=== PATIENT | male | born 1930 | race Caucasian/White ===

== ENCOUNTER 2017-04-25 17:00 | Emergency (ER) | payer MEDICARE ==
--- NOTE | 2017-04-25 17:47 | CT ---
CT OF HEAD NONCONTRAST: Clinical history: Trauma. FINDINGS: No evidence of intracranial hemorrhage, mass effect or midline shift. There is parenchymal volume los s with compensatory dilatation of the ventricular system. Mild chronic microvascular ischemic disease is present. Exam is compared to 02-03-17, without significant interval detrimental change identified. IMPRESSION: No acute intracranial abnormality. POS: [facility]
--- NOTE | 2017-04-25 17:53 | CT ---
CERVICAL SPINE CT NONCONTRAST: Indication: Fall with neck injury and pain. FINDINGS: There is diffuse osseous degenerative change as well as osseous demineralization. Multifocal areas of lucency are present. These could be on the basis of areas of osseous demineralization or possibly a myeloproliferative process, not further discerned on the basis of this exam. There is age indetermina te mild height loss of superior endplate at the T3 level. Correlate clinically. Motion artifact is pr esent which does limit evaluation. There are also areas of beam hardening artifact overlying portions of the proximal cervical spine producing osseous irregularity within this region, thus limiting asse ssment. There is partially imaged cardiac pacing device. IMPRESSION: 1. No definite acute fracture. 2. Multifocal osseous lucencies as above. Correlate clinically. 3. Prominent degenerative change. POS: [facility]
--- NOTE | 2017-04-25 18:03 | CT ---
FACIAL CT NONCONTRAST: Indication: Post-traumatic facial injury, fall. FINDINGS: There is irregularity of the nasal bones, age indeterminate. Recommend correlation with physical exam . [place] intraocular lens are absent. No retrobulbar hematoma. No displaced orbital wall fracture is seen. There is leftward nasal septal deviation with cystic nasal septic spur. Maxillary sinus grande a re intact. There is streak artifact from dental amalgam limiting assessment. No abnormal displacement of the temporomandibular joints. There is mild chronic appearing slight concavity of the bilateral z ygomatic arches without a discrete, acute fracture seen. IMPRESSION: Irregularity of the nasal bones, age indeterminate. Recommend correlation with clinical exam. POS: [facility]
[2017-04-25] MEDS ORDERED: Adacel (T-DAP) 0.5 ML VIAL ONE (18:28)
[2017-04-25] MEDS ORDERED: Lidocaine 1% w/Epinephrine 1:100K 20 ML VIAL ONE (18:54)
== END 2017-04-25 20:10 | disposition home or self-care (01) ==
LOC: ERS 17:00
DX: S01.112A Laceration without foreign body of left eyelid and periocular area, initial encounter (principal); S01.21XA Laceration without foreign body of nose, initial encounter; I48.91 Unspecified atrial fibrillation; E03.9 Hypothyroidism, unspecified; E78.5 Hyperlipidemia, unspecified; Z79.01 Long term (current) use of anticoagulants; Z79.899 Other long term (current) drug therapy; Z79.82 Long term (current) use of aspirin; Z86.718 Personal history of other venous thrombosis and embolism; W19.XXXA Unspecified fall, initial encounter
CPT/HCPCS: 12014; 70450; 70486; 72125; 90471; 90715; J2001

== ENCOUNTER 2017-07-01 14:14 | Emergency (ER) | payer MEDICARE ==
[2017-07-01 14:45] LABS: #Eosinphils 0.3 thou/uL (0.0-0.7); #Lymphocytes 0.8 thou/uL (1.20-3.40); #Monocytes 0.6 thou/uL (0.11-0.59); #Neutrophils 6.4 thou/uL (1.40-6.50); %Basophils 0.4 % (0.0-1.0); %Eosinophils 3.6 % (0.0-10.0); %Lymphocytes 10.2 % (21.0-51.0); %Monocytes 7.3 % (0.0-10.0); %Neutrophils 78.5 % (42.0-75.0); Hemoglobin 12.8 g/dL (14.0-18.0); Mean Corpuscular HGB CONC 34.1 g/dL (32.0-36.0); Mean Corpuscular Hemoglobin 32.6 pg (27.0-31.0); Mean Corpuscular Volume 95.6 fl (80.0-94.0); Mean Platelet Volume 7.2 fL (7.4-10.4); Platelet Count 183 thou/uL (130-400); RBC Distribution Width 13.5 % (11.5-14.5); Red Blood Cell (RBC) Count 3.93 mill/uL (4.70-6.10); White Blood Cell (WBC) Count 8.2 thou/uL (4.8-10.8)
[2017-07-01 15:01] LABS: ALT (SGPT) 13 U/L (8-55); AST (SGOT) 21 U/L (5-34); Albumin 3.8 g/dL (3.4-4.8); Alkaline Phosphatase 83 U/L (40-150); Anion Gap 15 mmol/L (10-20); BUN (Urea Nitrogen) 37 mg/dL (8.4-25.7); Bilirubin, Total 0.7 mg/dL (0.2-1.2); Calc. Creatinine Clearance 0 mL/min (70-130); Carbon Dioxide 19 mmol/L (23-31); Chloride 108 mmol/L (98-107); Estimated GFR-MDRD 34; Globulin 3.1 g/dL (2.4-3.5); Glucose 106 mg/dL (83-110); Protein, Total 6.9 g/dL (5.8-8.1); Sodium 138 mmol/L (136-145)
--- NOTE | 2017-07-01 15:03 | RAD ---
2 VIEWS LEFT HIP: Date: 07/01/17 INDICATION: Fall. COMPARISON: Prior study dated 02/03/17. FINDINGS: There has been interval placement of a left hip endoprosthesis. The prosthetic component projects in the expected position. There is diffuse osteopenia. There is heterotopic ossification surrounding the left hip joint. No definite displaced fracture is grossly evident. IMPRESSION: No acute osseous abnormality. POS: [facility]
--- NOTE | 2017-07-01 15:04 | RAD ---
AP VIEW PELVIS: Date: 07/01/17 INDICATION: History of fall with left-sided hip pain. FINDINGS: There is left hip endoprosthesis. There is heterotopic ossification surrounding the left hip joint. T here is mild to moderate degenerative arthrosis of the right hip joint. There are scattered phlebolit hs. There is diffuse osteopenia. No definite acute osseous abnormality is evident. IMPRESSION: No acute osseous abnormality. POS: [facility]
[2017-07-01 15:06] LABS: Troponin I 0.016 ng/mL (< 0.028)
--- NOTE | 2017-07-01 15:09 | RAD ---
AP VIEW OF CHEST: Date: 07/01/17 INDICATION: History of fall with chest pain. COMPARISON: Prior exam dated 04/17/13. FINDINGS: There is mild to moderate cardiomegaly. Pulmonary vasculature appears within normal limits. There is a dual lead pacemaker overlying the left chest wall. No definite pleural effusion or pneumothorax is evident. No acute osseous abnormality is evident. IMPRESSION: Cardiomegaly without evidence of cardiac decompensation. POS: [facility]
[2017-07-01] MEDS ORDERED: traMADol HCl 50 MG TAB ONE (15:56)
== END 2017-07-01 16:56 | disposition home or self-care (01) ==
LOC: ERS 14:14
DX: S70.02XA Contusion of left hip, initial encounter (principal); G20 Parkinson's disease; I48.91 Unspecified atrial fibrillation; E03.9 Hypothyroidism, unspecified; E78.5 Hyperlipidemia, unspecified; I10 Essential (primary) hypertension; Z79.82 Long term (current) use of aspirin; Z79.01 Long term (current) use of anticoagulants; Z85.828 Personal history of other malignant neoplasm of skin; Z79.899 Other long term (current) drug therapy; Z96.652 Presence of left artificial knee joint; W19.XXXA Unspecified fall, initial encounter
CPT/HCPCS: 71045; 72170; 80053; 82553; 83605; 84484; 85025; 93005

== ENCOUNTER 2019-03-28 10:08 | Observation (INO) | payer MEDICARE ==
[~2019-03-28 10:08] MED LIST: Iopamidol-370 76% 500 ML 1 ML ONE
[2019-03-28 10:51] LABS: #Basophils 0.1 thou/uL (0.0-0.2); #Lymphocytes 0.7 thou/uL (1.20-3.40); #Monocytes 0.8 thou/uL (0.11-0.59); %Basophils 0.4 % (0.0-1.0); %Eosinophils 0.2 % (0.0-10.0); %Lymphocytes 4.2 % (21.0-51.0); %Monocytes 4.9 % (0.0-10.0); %Neutrophils 90.3 % (42.0-75.0); Hemoglobin 12.7 g/dL (14.0-18.0); Mean Corpuscular HGB CONC 33.6 g/dL (32.0-36.0); Mean Corpuscular Hemoglobin 32.4 pg (27.0-31.0); Mean Corpuscular Volume 96.3 fL (78.0-98.0); Mean Platelet Volume 7.8 fL (7.4-10.4); Platelet Count 192 thou/uL (130-400); RBC Distribution Width 12.6 % (11.5-14.5); Red Blood Cell (RBC) Count 3.92 mill/uL (4.70-6.10); White Blood Cell (WBC) Count 15.5 thou/uL (4.8-10.8)
[2019-03-28 11:04] LABS: INR-International Normal Ratio 1.3; PTT 37.7 SEC (22.9-36.1); Prothrombin Time 15.7 SEC (12.0-14.7)
[2019-03-28 11:14] LABS: ALT (SGPT) 7 U/L (8-55); AST (SGOT) 13 U/L (5-34); Albumin 3.3 g/dL (3.4-4.8); Alkaline Phosphatase 70 U/L (40-110); Anion Gap 14 mmol/L (10-20); BUN (Urea Nitrogen) 30 mg/dL (8.4-25.7); Bilirubin, Total 0.5 mg/dL (0.2-1.2); Calc. Creatinine Clearance 0 mL/min (70-130); Calcium 8.9 mg/dL (7.8-10.44); Carbon Dioxide 22 mmol/L (23-31); Chloride 113 mmol/L (98-107); Estimated GFR-MDRD 57; Globulin 3.2 g/dL (2.4-3.5); Glucose 114 mg/dL (83-110); Potassium 3.6 mmol/L (3.5-5.1); Protein, Total 6.5 g/dL (5.8-8.1); Sodium 145 mmol/L (136-145)
--- NOTE | 2019-03-28 11:52 | CT ---
CT Abdomen Pelvis W Con: 03/28/2019 10:26 AM CLINICAL INFORMATION: Coffee-ground emesis and abdominal pain COMPARISON: None. TECHNIQUE: Multiple contiguous axial images were obtained and a CT of the abdomen and pelvis with IV contrast. C oronal and sagittal reformats were performed. FINDINGS: Lower Chest: Bibasilar atelectasis Abdomen: Liver: within normal limits. Bile Ducts: Normal caliber. Gallbladder: No calcified gallstones. Normal caliber wall. Pancreas: within normal limits. Spleen: A few scattered calcified granulomas. Adrenals: within normal limits. Kidneys: Bilateral renal hypodensities likely represent cysts. Pelvis: Reproductive Organs: No pelvic masses. Ureters: within normal limits. Bladder: 2.9 cm diverticulum emanating from the superior aspect of the urinary bladder. Peritoneum: No ascites or free air, no fluid collection. Bowel: Normal caliber. Scattered diverticula in the colon. Mesentery and Retroperitoneum: No enlarged mesenteric or retroperitoneal lymph nodes. Vessels: Atherosclerotic calcifications. Abdominal Wall: within normal limits. Bones: Degenerative changes in the spine. There are healed left pelvic fractures and the patient has a left hip prosthesis. IMPRESSION: 1. No evidence of acute intraabdominal or pelvic abnormality. 2. Diverticulosis 3. Urinary bladder diverticulum
[2019-03-28 12:13] LABS: CKMB 1.5 ng/mL (0-6.6)
--- NOTE | 2019-03-28 12:45 | RAD ---
EXAM: Single view of the chest HISTORY: Cough COMPARISON: 04/14/2018 FINDINGS: Single view of the chest shows an enlarged but stable cardiomediastinal silhouette. The pa cemaker is unchanged in position. There is no evidence of consolidation, mass, or pleural effusion. The bones are unremarkable. IMPRESSION: Cardiomegaly without evidence of acute cardiopulmonary disease
[2019-03-28 14:22] LABS: Troponin I 0.051 ng/mL (< 0.028)
[2019-03-28] MEDS ORDERED: Ondansetron ODT 4 MG TAB PO PRN (15:42)
[2019-03-28] MEDS ORDERED: Senokot S 8.6-50 MG TAB PO PRN (15:42)
[2019-03-28] MEDS ORDERED: Guaifenesin DM 100-10/5 ML UDCUP PO PRN (15:42)
[2019-03-28] MEDS ORDERED: Ondansetron PF 4 MG/2 ML Vial IVP PRN (15:42)
[2019-03-28] MEDS ORDERED: Acetaminophen 325 MG TAB PO PRN (15:42)
[2019-03-28] MEDS ORDERED: Acetaminophen 650 MG Suppository PR PRN (15:42)
[2019-03-28] MEDS ORDERED: cloNIDine 0.1 MG TAB PO PRN (15:43)
[2019-03-28] MEDS ORDERED: Losartan 25 MG TAB PO SCH (16:15)
[2019-03-28 17:01] LABS: Troponin I Less than 0.010 ng/mL (< 0.028)
--- NOTE | 2019-03-28 18:26 | HP ---
PRIMARY CARE PHYSICIAN: Magalis Raines MD. CHIEF COMPLAINT: Vomiting brown stuff. HISTORY OF PRESENT ILLNESS: This is an 88-year-old white male with a known history of Parkinson dementia has been progressive over the last year. He lives in a group home in [place] accompanied by his and his son. The patient has reportedly been having increasingly severe cough over the last 2 to 3 days. This was causing to choke some, but not causing any respiratory distress. Then, this morning he had an episode of vomiting before he ate anything or any breakfast episode of vomiting of brown stuff. This was initially reported as possible coffee-grounds emesis to the emergency room. However, on speaking with the nurse at the group home, it was actually just really dark brown. There was no coffee-ground color. There was no visible blood at all. The patient was then sent over to the emergency room. Other things he has had going on recently, he has had some blood in his urine. He had urinalysis done over 10 days ago. It shows small amount of blood, small amount of bacteria, no white blood cells. He did apparently grow back vancomycin-resistant Enterococcus though and he was started on nitrofurantoin 5 days ago. He has been taking this since then. In the emergency room, the patient had stable hemoglobin, hematocrit, it was actually higher than his last check, but he was noted to have new elevated white blood cell count of 15,000 and indeterminate troponin of 0.034, recheck was 0.051. He has had history of atrial fibrillation with a pacemaker placed and was being in a paced rhythm when he was in the emergency room; however, he started having multiple runs of ventricular tachycardia greater than 10 beats each time. In combination of these, ER physician wanted to observe him in the hospital overnight. REVIEW OF SYSTEMS: See HPI for all known positives. The patient is not able to provide review of systems secondary to his Parkinson dementia. PAST MEDICAL HISTORY: 1. Parkinson disease with dementia. 2. DVT with PE many years ago, was chronically on Coumadin for that and for his atrial fibrillation for many years, however, they decided to take it off in the last year. He has not been on it for over a month. 3. Chronic atrial fibrillation now with a pacemaker. 4. Hypothyroidism. 5. Hypercholesterolemia. 6. Hypertension. 7. Chronic obstructive pulmonary disease. 8. Gastroesophageal reflux disease. 9. Some type of valvular heart disease. 10. 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 PAST SURGICAL HISTORY: 1. Pacemaker. 2. Appendectomy. 3. Left knee surgery. 4. Tonsillectomy. SOCIAL HISTORY: The patient has no history of tobacco, alcohol, or illicit drug use. He lives at [facility]. He is . He is a do not attempt resuscitation. His , Kaylan Soni is his medical power of assistant attorney general is at the bedside. His son is a pharmacist is also at the bedside. FAMILY HISTORY: No significant family history. ALLERGIES: HYDROCODONE CAUSES SEVERE CONSTIPATION AND POSSIBLY CONFUSION. CURRENT MEDICATIONS: 1. Ipratropium bromide nasal spray 1 to 2 sprays in each nostril twice a day. 2. Nisoldipine 8.5 mg twice a day. 3. Amiodarone 100 mg daily. 4. Clonidine 0.1 mg as needed for blood pressure over 180. 5. FiberCon 625 mg daily. 6. Furosemide 20 mg daily. 7. Ferrous sulfate 325 mg daily. 8. Levocetirizine 5 mg daily as needed for allergic rhinitis. 9. Levothyroxine 50 mcg daily. 10. Losartan 100 mg daily. 11. Macrobid 100 mg twice a day starting 03/23/2019, course ends 04/01/2019. 12. Metoprolol tartrate 50 mg twice a day. 13. Potassium chloride 10 mEq p.o. daily. 14. Senna 8.6 mg 2 times a day. PHYSICAL EXAMINATION: VITAL SIGNS: Blood pressure 153/83, pulse 61, respirations 17, temperature 98.4, and O2 saturation 100% on 2 L. GENERAL: This is a well-developed, elderly, white man, lying calmly in the bed with his eyes closed. He will respond with pleasantries, but cannot give any history. He will not open his eyes. The family says he has done that more and more over the last year as a progression of the Parkinson's. EYES: Right eye, I was able to get a look at it has a round reactive pupil. The left eye, he would not let me open up enough to look at it. Oropharynx clear without lesions, erythema, or exudate. NECK: Supple. No lymphadenopathy. No thyroid nodules or enlargement. No JVD. HEART: Irregularly irregular rhythm at a controlled rate. No murmurs, rubs, or gallops. LUNGS: Clear to auscultation bilaterally. No wheezes, crackles, or rhonchi. ABDOMEN: Soft, nontender to palpation. Normoactive bowel sounds. No hepatosplenomegaly or masses. EXTREMITIES: No clubbing or cyanosis. He has some trace edema in the anterior tibial area. SKIN: No rashes or other lesions noted. NEUROLOGIC: The patient does move all of his extremities. He seems to have a little bit of a right facial droop. The family thinks this is old. Otherwise, not able to further ascertain his neurologic exam due to his mental status. LABORATORY DATA: CBC with a white blood cell count of 15,000, previously it has always been normal most recently a year ago and in our computer system and in the group home chart, it was normal within the last month. Hemoglobin 12.7, hematocrit 37.8. These are actually higher than they were previously at the group home and platelet count 192. Coagulation profile with an INR of 1.3. Complete metabolic panel is notable for chloride of 113, carbon dioxide of 22, BUN of 30, creatinine of 1.2, glucose of 114, and albumin of 3.3. The rest is normal. Initial troponin was 0.034 went up to 0.051 and now we have a third set it is less than 0.010. CK-MB was negative. 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 ASSESSMENT: 1. Vomiting of dark material. This does not appear to be blood by rechecking with the group home history. His blood count remained stable. We will go ahead and recheck in the morning and make sure he is not having any evidence of bleeding. I suspect that his recent cough has caused him to get nauseated, made him vomit. 2. Chest congestion and cough. His chest x-ray does not show any evidence of pneumonia on my read or the radiologist's read. However, he does have an increased white blood cell count, most likely has a bronchitis; however, he could have an early lower respiratory tract infection. I will go ahead and start him on doxycycline 100 mg twice a day for a 10-day course. 3. History of urinary tract infection, appears to be VRE, currently on nitrofurantoin. We will complete the 10-day course of antibiotics. No evidence of acute infection at this point. I will go ahead and draw blood and urine cultures before we start antibiotics. 4. Indeterminate troponins. This has resolved with third set, possibly related to strain from the ventricular tachycardia episodes. 5. Self-limited ventricular tachycardia. This is just few runs here in the ER per the nursing history and in the group home, he actually was having some intermittent tachycardia episodes possibly with that as well. We will watch him on the monitor overnight. He has not had any more since the ER doctor called me. He has been just regularly paced rhythm. We will observe him overnight on telemetry. If he has further runs of this, we can ask Cardiology to take a look at him. However, given his decline in mental status as his family's desire for do not attempt resuscitation, I think any more aggressive interventions will not likely be warranted. 6. Gastrointestinal prophylaxis. We will put the patient on Pepcid twice a day. 7. Deep venous thrombosis prophylaxis. We will hold on any anticoagulants right now given his recent bleeding in his urine and the question of vomiting of blood. We will put on SCDs while he is in bed. 8. Code status. The patient is do not attempt resuscitation. His medical power of assistant attorney general is his , Kaylan Soni. Job ID: [id number]
[2019-03-28] MEDS ORDERED: Metoprolol Tartrate 50 MG TAB ONE (20:12)
[2019-03-28] MEDS: Metoprolol Tartrate 50 MG TAB PO SCH (20:15)
[2019-03-28] MEDS ORDERED: Nisoldipine 8.5 MG TAB PO SCH (21:00)
[2019-03-28] MEDS: Famotidine 20 MG TAB PO SCH (22:05)
[2019-03-28] MEDS: Amlodipine 5 MG TAB PO SCH (22:05)
[2019-03-28] MEDS: Nitrofurantoin Monohyd/M-Cryst 100 MG CAP PO SCH (22:05)
[2019-03-28] MEDS: Doxycycline 100 MG CAP PO SCH (22:05)
[2019-03-28 22:52] VITALS: BMI 27.6
[2019-03-29 05:04] LABS: #Lymphocytes 0.9 thou/uL (1.20-3.40); #Monocytes 0.6 thou/uL (0.11-0.59); #Neutrophils 9.2 thou/uL (1.40-6.50); %Basophils 0.4 % (0.0-1.0); %Eosinophils 0.4 % (0.0-10.0); %Lymphocytes 8.5 % (21.0-51.0); %Monocytes 5.8 % (0.0-10.0); %Neutrophils 84.9 % (42.0-75.0); Hemoglobin 11.1 g/dL (14.0-18.0); Mean Corpuscular HGB CONC 32.7 g/dL (32.0-36.0); Mean Corpuscular Hemoglobin 31.3 pg (27.0-31.0); Mean Corpuscular Volume 95.7 fL (78.0-98.0); Mean Platelet Volume 8.7 fL (7.4-10.4); Platelet Count 182 thou/uL (130-400); RBC Distribution Width 12.5 % (11.5-14.5); Red Blood Cell (RBC) Count 3.53 mill/uL (4.70-6.10); White Blood Cell (WBC) Count 10.8 thou/uL (4.8-10.8)
[2019-03-29 05:29] LABS: Anion Gap 11 mmol/L (10-20); BUN (Urea Nitrogen) 33 mg/dL (8.4-25.7); Calc. Creatinine Clearance 52 mL/min (70-130); Calcium 8.7 mg/dL (7.8-10.44); Carbon Dioxide 24 mmol/L (23-31); Chloride 112 mmol/L (98-107); Estimated GFR-MDRD 57; Glucose 91 mg/dL (83-110); Potassium 3.4 mmol/L (3.5-5.1); Sodium 144 mmol/L (136-145)
[2019-03-29] MEDS: Levothyroxine Sodium 50 MCG TAB PO SCH (05:55)
[2019-03-29 06:24] LABS: Bacteria/HPF 1+ HPF (None Seen); Bilirubin Negative (Negative); Blood, Urine Trace (Negative); Clarity Clear (Clear); Glucose, Urine (Dipstick) Normal (Negative); Leukocyte Negative Leu/uL (Negative); Nitrite Negative (Negative); Protein, Urine (Dipstick) 100 mg/dL (Neg-Trace); RBC/HPF 0-3 HPF (0-3); Squamous Epithelial 0-3 HPF (0-3); Urobilinogen Normal mg/dL (Less than 2)
--- NOTE | 2019-03-29 08:18 | PDOC.HOSPP ---
- Subjective Encounter Date: 03/29/19 Encounter Time: 10:50 Subjective: Patient did well overnight. Had 6 beats of Vtach on the monitor. Still with cough. No clinical changes. No fever. - Objective Vital Signs & Weight: Vital Signs (12 hours) Temp Pulse Resp BP BP Pulse Ox 03/29/19 08:03 98.0 F 60 16 179/84 H 16 L 03/29/19 04:23 97.8 F 60 20 176/91 H 98 03/28/19 22:47 60 20 162/84 H 03/28/19 22:05 162/84 H Weight Weight 192 lb 3.889 oz I&O: 03/28/19 03/29/19 03/30/19 06:59 06:59 06:59 Intake Total 100 Output Total 150 Balance -50 Result Diagrams: 03/29/19 04:25 03/29/19 04:25 Additional Labs: Accuchecks 03/29/19 07:35 POC Glucose 93 Hospitalist ROS - Medication Medications: Active Medications Generic Name Dose Route Start Last Admin Trade Name Elena PRN Reason Stop Dose Admin Amlodipine Besylate 2.5 mg 03/28/19 21:00 03/28/19 22:05 Norvasc PO 2.5 mg BID ROSARIO Administration Doxycycline Hyclate 100 mg 03/28/19 21:00 03/28/19 22:05 Vibramycin PO 100 mg BID ROSARIO Administration Famotidine 20 mg 03/28/19 21:00 03/28/19 22:05 Pepcid PO 20 mg BID ROSARIO Administration Levothyroxine Sodium 50 mcg 03/29/19 06:00 03/29/19 05:55 Synthroid PO 50 mcg 0600 ROSARIO Administration Metoprolol Tartrate 50 mg 03/28/19 21:00 03/28/19 20:15 Lopressor PO 50 mg BID ROSARIO Administration Nitrofurantoin Macrocrystals 100 mg 03/28/19 21:00 03/28/19 22:05 Macrobid PO 04/01/19 23:59 100 mg BID ROSARIO Administration Hosp A/P (1) Acute bronchitis Code(s): J20.9 - ACUTE BRONCHITIS, UNSPECIFIED Status: Acute (2) Vomiting Code(s): R11.10 - VOMITING, UNSPECIFIED Status: Resolved (3) Bacteriuria due to vancomycin resistant Enterococcus Code(s): R82.71 - BACTERIURIA; Z16.21 - RESISTANCE TO VANCOMYCIN Status: Acute (4) Ventricular tachycardia Code(s): I47.2 - VENTRICULAR TACHYCARDIA Status: Resolved (5) Parkinson's disease dementia Code(s): G20 - PARKINSON'S DISEASE; F02.80 - DEMENTIA IN OTH DISEASES CLASSD ELSWHR W/O BEHAVRL DISTURB Status: Chronic - Plan continue antibiotics Continuing nitrofurantoin from outpatient If no further V-tach episodes overnight can go back to the senior living on doxycycline for bronchitis vs early pneumonia Leukocytosis resolved and H/H stable at baseline, no evidence GI or respiratory tract bleed Does have 1/2 gram +/veriable rods in blood. Likely contaminent given lack of fever or leukocytosis. Awaiting cardiology recs and then possibly back to senior living later today.
[2019-03-29] MEDS: Amiodarone 200 MG TAB PO SCH (08:26)
[2019-03-29] MEDS: Doxycycline 100 MG CAP PO SCH ×2 (08:26→21:13)
[2019-03-29] MEDS: Amlodipine 5 MG TAB PO SCH ×2 (08:26→21:13)
[2019-03-29] MEDS: Furosemide 20 MG TAB PO SCH (08:26)
[2019-03-29] MEDS: Losartan 25 MG TAB PO SCH (08:26)
[2019-03-29] MEDS: Nitrofurantoin Monohyd/M-Cryst 100 MG CAP PO SCH ×2 (08:27→21:13)
[2019-03-29] MEDS: Metoprolol Tartrate 50 MG TAB PO SCH ×2 (08:27→21:13)
[2019-03-29] MEDS: Famotidine 20 MG TAB PO SCH ×2 (11:05→21:13)
[2019-03-29] MEDS ORDERED: Labetalol HCl 100 MG/20 ML VIAL SLOW IVP PRN (18:09)
[2019-03-30] MEDS: Levothyroxine Sodium 50 MCG TAB PO SCH (06:04)
[2019-03-30 08:09] LABS: #Eosinphils 0.1 thou/uL (0.0-0.7); #Lymphocytes 1.1 thou/uL (1.20-3.40); #Monocytes 0.7 thou/uL (0.11-0.59); #Neutrophils 6.3 thou/uL (1.40-6.50); %Basophils 0.1 % (0.0-1.0); %Eosinophils 1.2 % (0.0-10.0); %Lymphocytes 13.2 % (21.0-51.0); %Monocytes 8.4 % (0.0-10.0); %Neutrophils 77.1 % (42.0-75.0); Hemoglobin 11.2 g/dL (14.0-18.0); Mean Corpuscular HGB CONC 33.7 g/dL (32.0-36.0); Mean Corpuscular Hemoglobin 32.6 pg (27.0-31.0); Mean Corpuscular Volume 96.5 fL (78.0-98.0); Mean Platelet Volume 8.2 fL (7.4-10.4); Platelet Count 176 thou/uL (130-400); RBC Distribution Width 12.5 % (11.5-14.5); Red Blood Cell (RBC) Count 3.44 mill/uL (4.70-6.10); White Blood Cell (WBC) Count 8.1 thou/uL (4.8-10.8)
[2019-03-30 08:18] LABS: Anion Gap 13 mmol/L (10-20); BUN (Urea Nitrogen) 27 mg/dL (8.4-25.7); Calc. Creatinine Clearance 51 mL/min (70-130); Calcium 8.5 mg/dL (7.8-10.44); Carbon Dioxide 23 mmol/L (23-31); Chloride 111 mmol/L (98-107); Estimated GFR-MDRD 55; Glucose 81 mg/dL (83-110); Magnesium 2.2 mg/dL (1.6-2.6); Potassium 3.3 mmol/L (3.5-5.1); Sodium 144 mmol/L (136-145)
[2019-03-30] MEDS: Doxycycline 100 MG CAP PO SCH ×2 (09:11→20:17)
[2019-03-30] MEDS: Amlodipine 5 MG TAB PO SCH (09:11)
[2019-03-30] MEDS: Amiodarone 200 MG TAB PO SCH (09:11)
[2019-03-30] MEDS: Metoprolol Tartrate 50 MG TAB PO SCH ×2 (09:12→20:19)
[2019-03-30] MEDS: Losartan 25 MG TAB PO SCH (09:12)
[2019-03-30] MEDS: Furosemide 20 MG TAB PO SCH (09:12)
[2019-03-30] MEDS: Famotidine 20 MG TAB PO SCH ×2 (09:12→20:18)
[2019-03-30] MEDS: Nitrofurantoin Monohyd/M-Cryst 100 MG CAP PO SCH ×2 (09:12→20:19)
--- NOTE | 2019-03-30 09:39 | CON ---
DATE OF CONSULTATION: 03/29/2019 PRIMARY INSTRUMENT REPAIR SPECIALIST: Dr. Rex Coto. REASON FOR CONSULTATION: Nonsustained ventricular tachycardia. HISTORY OF PRESENT ILLNESS: Mr. Soni is an 89-year-old white gentleman, who comes to the hospital for vomiting. He vomited what appeared to be brown coffee-ground emesis. He has been having worsening cough in the last 3-4 days, thought to be related to some sort of bronchitis. He had an elevated white cell count on admission, so he was admitted, thought this was a bronchitis, unclear whether it was a GI bleed. However, his hemoglobin has remained stable and it appears that this has been ruled out already. Cardiology is being consulted during his cardiac monitor technician, he is being atrially paced, ventricularly sensed with a right bundle branch block morphology and he had a brief run of seven beats of nonsustained ventricular tachycardia. He was given about 120 beats per minute at that time. He has no other issues at this time. He is verbal and conversant; however, family wants to be DNR and is conservative as possible. PAST MEDICAL HISTORY: 1. Parkinson disease with dementia. 2. History of DVT in the past. He has been chronically on Coumadin for this. 3. History of atrial fibrillation, appears to be paroxysmal. 4. Hypothyroidism. 5. Hyperlipidemia. 6. Hypertension. 7. COPD. 8. GERD. 9. Valvular heart disease. 10. 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 PAST SURGICAL HISTORY: 1. Pacemaker placement. 2. Appendectomy. 3. Left knee surgery. 4. Tonsillectomy. SOCIAL HISTORY: No alcohol, tobacco, or drugs. Lives in the [facility]. is in the room with him. FAMILY HISTORY: Noncontributory. ALLERGIES: HYDROCODONE CAUSES SEVERE CONSTIPATION AND CONFUSION. OUTPATIENT MEDICATIONS: Include; 1. Ipratropium bromide sprays. 2. Nisoldipine 8.5 mg twice a day. 3. Amiodarone 100 mg a day. 4. Clonidine 0.1 mg p.r.n. for hypertension. 5. FiberCon. 6. Furosemide 20 mg a day. 7. Ferrous sulfate 325 a day. 8. Levocetirizine 5 mg p.r.n. for allergic allergies. 9. Levothyroxine 50 mcg a day. 10. Losartan 100 mg a day. 11. Macrobid. 12. Metoprolol tartrate 50 mg twice a day. 13. Potassium chloride 10 mEq day. 14. Senna S twice a day. REVIEW OF SYSTEMS: A 12-point review of systems was done and was all negative unless stated in the history of history of present illness. PHYSICAL EXAMINATION: VITAL SIGNS: Temperature 98.3, pulse 60, respiratory rate 16, sat 95% on 2 L nasal cannula, blood pressure 144/86. GENERAL: Awake, alert. He is oriented to person, but difficulty with time and place, in no distress. He is a retired psychologist. HEENT: Normocephalic atraumatic. NECK: Supple. LUNGS: Clear. CARDIOVASCULAR: Regular heart rate in the 60s. ABDOMEN: Soft, positive bowel sounds. EXTREMITIES: 1+ edema. SKIN: Warm and dry. LABORATORY DATA: Laboratory work was reviewed. White count from 15 down to 10, hemoglobin from 12 down to 11, hematocrit of 37, platelet count of a 182. Coags, INR are 1.3. Chemistries were reviewed. Potassium little lower this morning at 3.4. Troponin was 0.3, 0.05 and then undetectable. There are normal CK-MB albumin of 3.3. UA was with 4-6 white cells, and 1+ bacteria. ASSESSMENT: 1. Nonsustained ventricular tachycardia. 2. Hypokalemia. 3. History of atrial fibrillation. PLAN: 1. We will have his pacemaker/AICD interrogated. He is already on a beta marleny and amiodarone, so we will probably just continue this for now. This seems to be a dual chamber pacemaker only after reviewing the chest x-ray. 2. Family wants to be as conservative as possible. They are not interested in any heart catheterizations or any invasive interventions. They only want to do medications. Currently, on beta marleny and amiodarone. He should be okay with continuing these medications. This was only nonsustained. Not interested in ischemic workup given his level of dementia. 3. Thank you for letting us to participate in the care of your patient. We will plan on interrogating device and he may be discharged home at any point after interrogation of the device on current regimen. 4. Follow up with Dr. Coto in 1 to 2 months. Job ID: [id number]
[2019-03-30] MEDS ORDERED: Potassium Chloride 20 MEQ TAB PO SCH (11:30)
--- NOTE | 2019-03-30 11:45 | PDOC.HOSPP ---
- Subjective Encounter Date: 03/30/19 (f/u cough) Encounter Time: 11:43 Subjective: History obtained from the patient's daughter - she reports eyes open/ate today. Pt is not on oxygen at facility. significantly elevated bp's overnight that required 3 meds - Objective Vital Signs & Weight: Vital Signs (12 hours) Temp Pulse Resp BP BP Pulse Ox 03/30/19 07:25 97.5 F L 64 16 185/94 H 94 L 03/30/19 06:05 60 169/82 H 03/30/19 04:27 61 191/94 H 03/30/19 03:53 98.2 F 60 14 191/94 H 97 03/30/19 00:39 195/96 H Weight Weight 192 lb 3.889 oz I&O: 03/29/19 03/30/19 03/31/19 06:59 06:59 06:59 Intake Total 100 960 Output Total 150 Balance -50 960 Result Diagrams: 03/30/19 07:20 03/30/19 07:20 EKG Reviewed by me: Yes (tele - paced 60's, no arrhythmias in past 24 hours) Hospitalist ROS - Medication Medications: Active Medications Generic Name Dose Route Start Last Admin Trade Name Freq PRN Reason Stop Dose Admin Amiodarone HCl 100 mg 03/29/19 09:00 03/30/19 09:11 Cordarone PO 100 mg DAILY ROSARIO Administration Amlodipine Besylate 2.5 mg 03/28/19 21:00 03/30/19 09:11 Norvasc PO 2.5 mg BID ROSARIO Administration Clonidine 0.1 mg 03/28/19 15:43 03/30/19 00:39 Catapres PO 0.1 mg Q4H PRN Administration SBP Greater Than 180 Doxycycline Hyclate 100 mg 03/28/19 21:00 03/30/19 09:11 Vibramycin PO 100 mg BID ROSARIO Administration Famotidine 20 mg 03/28/19 21:00 03/30/19 09:12 Pepcid PO 20 mg BID ROSARIO Administration Furosemide 20 mg 03/29/19 09:00 03/30/19 09:12 Lasix PO 20 mg DAILY ROSARIO Administration Labetalol HCl 10 mg 03/29/19 18:09 03/30/19 04:27 Normodyne SLOW IVP 10 mg Q6H PRN Administration SBP Greater Than 180 Levothyroxine Sodium 50 mcg 03/29/19 06:00 03/30/19 06:04 Synthroid PO 50 mcg 0600 ROSARIO Administration Losartan Potassium 100 mg 03/29/19 09:00 03/30/19 09:12 Cozaar PO 100 mg DAILY ROSARIO Administration Metoprolol Tartrate 50 mg 03/28/19 21:00 03/30/19 09:12 Lopressor PO 50 mg BID ROSARIO Administration Nitrofurantoin Macrocrystals 100 mg 03/28/19 21:00 03/30/19 09:12 Macrobid PO 04/01/19 23:59 100 mg BID ROSARIO Administration Potassium Chloride 10 meq 03/29/19 08:00 03/30/19 09:11 Klor-Con PO 10 meq QAM-WM ROSARIO Administration - Exam General Appearance: NAD Heart: RRR, no murmur Respiratory: CTAB, no wheezes, no rales, no ronchi Gastrointestinal: soft, non-tender, non-distended, normal bowel sounds Musculoskeletal - other findings: cogwheel rigidty of UE Hosp A/P (1) Acute bronchitis Code(s): J20.9 - ACUTE BRONCHITIS, UNSPECIFIED Status: Acute (2) Parkinson's disease dementia Code(s): G20 - PARKINSON'S DISEASE; F02.80 - DEMENTIA IN OTH DISEASES CLASSD ELSWHR W/O BEHAVRL DISTURB Status: Chronic - Plan appreciate cardiology consult - continue current meds Replace potassium bp's uncontrolled - change amlodipine to 10 mg daily, with extra 5 mg now, schedule clonidine 0.1mg bid with first dose now monitor cough Only 1 blood cx positive - c/w contaminant dvt prophy - scd's gi prophy - not indicated code status DNAR reviewed antibiotics and plan of care with patient's daughter, plan for monitoring another 24 hours for bp. No questions or further needs at end of eval pt remains at high risk in current condition
[2019-03-30] MEDS ORDERED: Amlodipine 5 MG TAB PO SCH (12:00)
[2019-03-30] MEDS ORDERED: cloNIDine 0.1 MG TAB PO SCH (12:15)
--- NOTE | 2019-03-30 14:53 | DIS ---
DATE OF ADMISSION: 03/28/2019 DATE OF DISCHARGE: 03/30/2019 PRIMARY CARE PHYSICIAN: Dr. Raines. REASON FOR ADMISSION: Vomiting and runs of tachycardia. DIAGNOSES AT DISCHARGE: 1. Acute bronchitis. 2. Vomiting, resolved. 3. Chronic atrial fibrillation with pacemaker and intermittent runs of self-limited ventricular tachycardia. 4. Parkinson disease with advanced dementia. 5. Hypothyroidism. 6. Hypercholesterolemia. 7. Hypertension. 8. Chronic obstructive pulmonary disease without exacerbation. 9. Gastroesophageal reflux disease. PROCEDURES: CT of abdomen and pelvis showing no evidence for acute intracranial or pelvic abnormality. There was some diverticulosis and urinary bladder diverticulum. No evidence on my review for prostate abnormalities. CONSULTATION: Cardiology, Dr. Alberto. SUMMARY OF HOSPITAL COURSE: This is an 88-year-old white male with a known history of Parkinson's dementia had been progressive especially over the last year, lives in a [facility] in [place]. He stays mostly in bed, keeps his eyes closed, most of the time now does not talk as much as he used to and only has recollection of things from a long time ago. He developed some cough over the last 2 to 3 weeks and is significantly severe over the last 2 to 3 days. No fevers per [facility] reports, but he did have an episode of vomiting of brownish material. This was initially reported as possible coffee-grounds emesis to the ER when the patient was transferred. Nurse had also noticed some runs of tachycardia that were self limited. The patient was brought into the emergency room. He was found to have a few self-limited runs of ventricular tachycardia on the monitor without any vital sign abnormalities or symptoms. He did have intermittent cough, but no respiratory distress. Clear chest x-ray and clear lung exam. The patient was on nitrofurantoin for vancomycin-resistant Enterococcus, otherwise had not been on any specific treatments. He was noted to have a white blood cell count of 15,000 on admission. He did have an indeterminate troponin of 0.034 up to 0.051. The patient had normal vital signs in the emergency room and appeared to be in distress due to the indeterminate troponins and the ventricular tachycardia runs, the patient was observed overnight. He had one single run of 6 beats of ventricular tachycardia overnight. Otherwise, he was in paced rhythm, had no symptoms. His leukocytosis resolved the next day. He was put on doxycycline for bronchitis. He had no fevers. The patient did have one of his two blood cultures started growing back in an indeterminate or gram variable or gram positive jony consistent with a contaminant, though the final results of that are not back yet. He was in his normal state of health. The next day, Dr. Alberto did come to see him about ventricular tachycardia runs. He did not recommend any medication adjustments and the patient is being discharged back to [facility]. Of note, I was just informed by Case Management that the [facility] can take this late in the afternoon, so he will probably end up being sent him back tomorrow morning. Job ID: [id number]
--- NOTE | 2019-03-30 15:40 | PDOC.CPN ---
- Subjective Date: 03/30/19 Time: 15:39 Interval history: No new issue. - Review of Systems General: denies: fever/chills, weight/appetite/sleep changes, night sweats, fatigue Respiratory: denies: cough, congestion, shortness of breath, exercise intolerance Cardiovascular: denies: chest pain, palpitation, edema, paroxysmal nocturnal dyspnea, orthopnea Gastrointestinal: denies: nausea, vomiting, diarrhea, constipation, abd pain, GI bleeding Musculoskeletal: denies: pain, tenderness, stiffness, swelling, arthritis/ arthralgias Neurological: denies: numbness, syncope, seizure, weakness - Objective Allergies/Adverse Reactions: Allergies Allergy/AdvReac Type Severity Reaction Status Date / Time No Known Drug Allergies Allergy Verified 03/28/19 23:35 Visit Medications: Current Medications Acetaminophen (Tylenol) 650 mg PO Q4H PRN PRN Reason: Headache/Fever/Mild Pain (1-3) Acetaminophen (Tylenol) 650 mg CA Q4H PRN PRN Reason: Headache/Fever/Mild Pain (1-3) Amiodarone HCl (Cordarone) 100 mg PO DAILY [facility] Last Admin: 03/30/19 09:11 Dose: 100 mg Amlodipine Besylate (Norvasc) 10 mg PO DAILY [facility] Clonidine (Catapres) 0.1 mg PO Q4H PRN PRN Reason: SBP Greater Than 180 Last Admin: 03/30/19 00:39 Dose: 0.1 mg Clonidine (Catapres) 0.1 mg PO BID [facility] Doxycycline Hyclate (Vibramycin) 100 mg PO BID [facility] Last Admin: 03/30/19 09:11 Dose: 100 mg Famotidine (Pepcid) 20 mg PO BID [facility] Last Admin: 03/30/19 09:12 Dose: 20 mg Furosemide (Lasix) 20 mg PO DAILY [facility] Last Admin: 03/30/19 09:12 Dose: 20 mg Guaifenesin/Dextromethorphan (Robitussin Dm) 15 ml PO Q4H PRN PRN Reason: Cough Labetalol HCl (Normodyne) 10 mg SLOW IVP Q6H PRN PRN Reason: SBP Greater Than 180 Last Admin: 03/30/19 04:27 Dose: 10 mg Levothyroxine Sodium (Synthroid) 50 mcg PO 0600 [facility] Last Admin: 03/30/19 06:04 Dose: 50 mcg Losartan Potassium (Cozaar) 100 mg PO DAILY [facility] Last Admin: 03/30/19 09:12 Dose: 100 mg Metoprolol Tartrate (Lopressor) 50 mg PO BID [facility] Last Admin: 03/30/19 09:12 Dose: 50 mg Nitrofurantoin Macrocrystals (Macrobid) 100 mg PO BID [facility] Stop: 04/01/19 23:59 Last Admin: 03/30/19 09:12 Dose: 100 mg Ondansetron HCl (Zofran Odt) 4 mg PO Q6H PRN PRN Reason: Nausea/Vomiting Ondansetron HCl (Zofran) 4 mg IVP Q6H PRN PRN Reason: Nausea/Vomiting Potassium Chloride (Klor-Con) 10 meq PO QAM-WM [facility] Last Admin: 03/30/19 09:11 Dose: 10 meq Senna/Docusate Sodium (Senokot S) 2 tab PO BID PRN PRN Reason: Constipation Vital Signs & Weight: Vital Signs Temp Pulse Resp BP BP Pulse Ox 03/30/19 15:17 98.4 F 65 20 172/93 H 93 L 03/30/19 11:44 98.6 F 63 18 176/87 H 96 03/30/19 07:25 97.5 F L 64 16 185/94 H 94 L 03/30/19 06:05 60 169/82 H 03/30/19 04:27 61 191/94 H 03/30/19 03:53 98.2 F 60 14 191/94 H 97 Weight 192 lb 3.889 oz - Physical Exam General: no apparent distress HEENT: mucus membranes moist Neck: supple neck Cardiac: regular rate and rhythm Lungs: clear to auscultation Neuro: grossly intact Abdomen: active bowel sounds Extremities: 1+ LE edema Skin: clear Musculoskeletal: no pain - Labs Result Diagrams: 03/30/19 07:20 03/30/19 07:20 Troponin/CKMB CK-MB (CK-2) 1.5 ng/mL (0-6.6) 03/28/19 10:45 Troponin I Less than 0.010 ng/mL (< 0.028) 03/28/19 16:28 - Telemetry Sinus rhythms and dysrhythmias: other (A paced.) - Assessment/Plan Assessment/Plan: 1. Wide complex rhythm, not an arrhythmia but pacer mediated. 2. Paroxysmal afib, In sinus for last 7 months. 3. Uncontrolled HTN PLAN: - Agree with changes in BP meds. - Continue amiodarone and warfarin for stroke prophylaxis. - Will sign off, please call with any questions.
[2019-03-30] MEDS: cloNIDine 0.1 MG TAB PO SCH (20:16)
[2019-03-31 03:55] VITALS: TEMP 98.3
[2019-03-31] MEDS: Levothyroxine Sodium 50 MCG TAB PO SCH (05:13)
[2019-03-31] MEDS ORDERED: Amlodipine 5 MG TAB PO SCH (09:00)
[2019-03-31] MEDS: Amiodarone 200 MG TAB PO SCH (09:06)
[2019-03-31] MEDS: cloNIDine 0.1 MG TAB PO SCH (09:06)
[2019-03-31] MEDS: Famotidine 20 MG TAB PO SCH (09:07)
[2019-03-31] MEDS: Nitrofurantoin Monohyd/M-Cryst 100 MG CAP PO SCH (09:07)
[2019-03-31] MEDS: Doxycycline 100 MG CAP PO SCH (09:07)
[2019-03-31] MEDS: Losartan 25 MG TAB PO SCH (09:07)
[2019-03-31] MEDS: Furosemide 20 MG TAB PO SCH (09:07)
[2019-03-31] MEDS: Metoprolol Tartrate 50 MG TAB PO SCH (09:07)
[2019-03-31 10:20] LABS: Anion Gap 13 mmol/L (10-20); BUN (Urea Nitrogen) 29 mg/dL (8.4-25.7); Calc. Creatinine Clearance 52 mL/min (70-130); Calcium 8.6 mg/dL (7.8-10.44); Carbon Dioxide 22 mmol/L (23-31); Chloride 112 mmol/L (98-107); Estimated GFR-MDRD 56; Glucose 106 mg/dL (83-110); Potassium 3.9 mmol/L (3.5-5.1); Sodium 143 mmol/L (136-145)
[2019-03-31] MEDS ORDERED: cloNIDine 0.1mg/24 Hour PATCH TD SCH (11:00)
[2019-03-31 15:14] VITALS: BP 141/73
--- NOTE | 2019-04-03 09:12 | DIS ---
DATE OF ADMISSION: 03/28/2019 DATE OF DISCHARGE: 03/31/2019 MEDICATIONS: Reconciled at discharge. New medications: 1. Doxycycline 100 mg p.o. b.i.d. for 4 doses, starting tonight. 2. Clonidine 0.1 mg transdermal patch changing every 7 days. Medications to resume are; 1. Tylenol 325 mg tablets 2 tablets every 4 hours as needed. 2. Amiodarone 100 mg daily. 3. Arginaid powder one packet daily. 4. Vitamin C 500 mg daily. 5. Aspirin 81 mg daily. 6. FiberCon 625 mg daily. 7. Ferrous sulfate 325 mg daily. 8. Lasix 20 mg daily. 9. Guaifenesin DM 15 mL p.o. q.4 hours p.r.n. 10. Ipratropium two sprays each nostril three times daily. 11. Levocetirizine 5 mg daily as needed. 12. Levothyroxine 50 mcg daily. 13. Losartan 100 mg daily. 14. Metoprolol tartrate 50 mg b.i.d. 15. Nisoldipine extended release 24 hours, 8.5 mg b.i.d. 16. Nitrofurantoin 100 mg p.o. b.i.d., this antibiotic should be stopped whenever it was directed by the physician at the patient's facility. 17. Potassium chloride 20 mEq/15 mL 10 mEq daily. 18. Senna 8.6 mg tablet b.i.d. 19. Zinc 220 mg daily. 20. Clonidine 0.1 mg tablet every 6 hours as needed for systolic blood pressure greater than 180. FINAL DIAGNOSES: 1. Bronchitis. 2. Report of vomiting, resolved. No evidence of coffee-grounds emesis. 3. 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 4. Ventricular tachycardia, resolved. 5. Chronic anemia. 6. Diverticulosis. SECONDARY DIAGNOSES: 1. Parkinson disease with dementia. 2. Hypertension. 3. Dyslipidemia. 4. History of deep vein thrombosis and pulmonary embolism. 5. Chronic atrial fibrillation with pacemaker. 6. Hypothyroidism. 7. Chronic obstructive pulmonary disease. 8. Gastroesophageal reflux disease. 9. Left eye blindness. HISTORY OF PRESENT ILLNESS: Mr. Soni is an 89-year-old male with the above medical problems, who was having increasing cough over the last 2 to 3 days, with an episode of vomiting concerning for coffee-ground emesis. He was brought to the emergency room for this. HOSPITAL COURSE: The patient has had no evidence of vomiting here, or any evidence of bleeding. For the cough, this was diagnosed as bronchitis and he was started on doxycycline for which he will continue a 5-day course. We also had as-needed cough medication. The patient had an episode of ventricular tachycardia on the monitor. He does have chronic atrial fibrillation and a pacemaker. He was evaluated by Cardiology, no medication changes were recommended. He can follow up with Dr. Coto in 1 to 2 months as needed. The patient had a diagnosis of VRE UTI and he was continued on nitrofurantoin. This should be discontinued per the instructions of Dr. Raines at his facility. The patient's blood pressures were significantly elevated 2 nights ago up into the 200 systolic. He was started on scheduled clonidine 0.1 mg which is being changed over to the clonidine patch at discharge for ease of administration as well as dosing. This should be adjusted to optimal effect per Dr. Raines. The patient is overall stable, does meet criteria for discharge back to his facility. PHYSICAL EXAMINATION: VITAL SIGNS: Blood pressure 175/81 prior to medications, and over the past 24 hours, have ranged from 162/86 to 186/89 with the majority of values being in the 160s and 170s. GENERAL: The patient will mumble to yes or no questions. He is not in apparent distress. LUNGS: Clear to auscultation. No audible wheezing, rhonchi, or rales. HEART: Has a regular rate. No significant murmurs. ABDOMEN: Soft. Present bowel sounds. EXTREMITIES: No significant edema. JOHNSON FINDINGS AND TEST RESULTS: Renal panel yesterday; 144, 3.3, 111, 23, 27, 1.24, 81. Calcium 8.5, magnesium 2.2. Troponin less than 0.01, 0.051, 0.034. LFTs; T bilirubin 0.5, AST 13, ALT 7, alkaline phosphatase 70, total protein 6.5, albumin 3.3. Urinalysis showed trace blood, 4-6 white blood cells, 1+ bacteria, present protein. CBC; 8.1, 11.2, 33.2, 176 with 77% neutrophils. Blood culture one set, no growth. The other set, bacillus species . Chest x-ray on 03/28, cardiomegaly without evidence of acute cardiopulmonary disease. Abdominal pelvic CT on 03/28, shows no evidence of an acute intraabdominal or pelvic abnormality. Diverticulosis, urinary bladder diverticulum. DIET: Heart healthy, returning to the same instructions at his facility. ACTIVITY: As tolerated. CODE STATUS: Do not attempt resuscitation and in [id number] is on the chart. DISCHARGE DISPOSITION: To his facility in [place]. Reviewed with his son the medication changes and reasoning behind them as well as the need for further adjustments with Dr. Raines or her team at the facility, the return for care precautions. There were no questions or further needs at the time of discharge. TIME SPENT: Total time coordinating discharge is 40 minutes. Job ID: [id number]
== END 2019-03-31 15:10 ==
LOC: ERS 10:08 → ERHOLD 12:41 → 2NO 21:11
PROVIDERS: ADMIT Emergency Medicine; ATTEND Emergency Medicine
DX: J20.9 Acute bronchitis, unspecified (principal); R11.10 Vomiting, unspecified; N39.0 Urinary tract infection, site not specified; B95.2 Enterococcus as the cause of diseases classified elsewhere; I47.2 Ventricular tachycardia; D64.9 Anemia, unspecified; K57.30 Diverticulosis of large intestine without perforation or abscess without bleeding; G20 Parkinson's disease; F02.80 Dementia in other diseases classified elsewhere, unspecified severity, without behavioral disturbance, psychotic disturbance, mood disturbance, and anxiety; I10 Essential (primary) hypertension; E78.00 Pure hypercholesterolemia, unspecified; I48.0 Paroxysmal atrial fibrillation; E03.9 Hypothyroidism, unspecified; J44.9 Chronic obstructive pulmonary disease, unspecified; K21.9 Gastro-esophageal reflux disease without esophagitis; H54.62 Unqualified visual loss, left eye, normal vision right eye; E87.6 Hypokalemia; Z16.21 Resistance to vancomycin; Z66 Do not resuscitate; Z86.711 Personal history of pulmonary embolism; Z86.718 Personal history of other venous thrombosis and embolism; Z79.2 Long term (current) use of antibiotics; Z79.82 Long term (current) use of aspirin; Z79.899 Other long term (current) drug therapy; Z95.0 Presence of cardiac pacemaker
CPT/HCPCS: 71045; 74177; 80048 ×3; 80053; 81001; 82553; 82962; 83735; 84484 ×2; 85025 ×3; 85610; 85730; 87040; 93005; 96374; 99285; G0378 ×5; 36415; 36416; Q9967